=== PATIENT | male | born 1965 | race American Indian/Alaskan Native ===

== ENCOUNTER 2017-03-13 08:55 | Emergency (ER) | payer MEDICAID ==
[~2017-03-13] VITALS: Ht 172.7 cm; Wt 97.7 kg
[2017-03-13] MEDS ORDERED: KETOROLAC 30 MG/1 ML ONE (09:24)
[2017-03-13] MEDS ORDERED: KETOROLAC 30 MG/1 ML IM ONE (09:30)
[2017-03-13 10:30] VITALS: BP 125/55
== END 2017-03-13 10:33 | disposition home or self-care (01) ==
LOC: ED 10:20
DX: L03.114 Cellulitis of left upper limb (principal); M79.642 Pain in left hand; F17.210 Nicotine dependence, cigarettes, uncomplicated
CPT/HCPCS: 29125; 73130; 96372; 99284; J1885

== ENCOUNTER 2017-03-20 08:17 | Emergency (ER) | payer MEDICAID ==
[~2017-03-20] VITALS: Ht 172.7 cm; Wt 97.1 kg
[2017-03-20 08:18] VITALS: BP 130/70
== END 2017-03-20 09:34 | disposition home or self-care (01) ==
LOC: ED 09:19
DX: L03.114 Cellulitis of left upper limb (principal); F17.210 Nicotine dependence, cigarettes, uncomplicated
CPT/HCPCS: 99283

== ENCOUNTER 2021-01-06 11:19 | Emergency (ER) | payer MEDICAID ==
[~2021-01-06] VITALS: Ht 172.7 cm; Wt 94.8 kg
--- NOTE | 2021-01-06 12:16 | NUR ---
TO BLAIR FROM [facility]
--- NOTE | 2021-01-06 13:41 | NUR ---
UA sample obtained and sent. 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 [place] tech arrived and in process of exam now.
[2021-01-06 13:43] LABS: BASOPHILS % (AUTO) 1 % (0-1); EOSINOPHILS % (AUTO) 2 % (1-7); LYMPHOCYTES % (AUTO) 23 % (22-44); MEAN CORPUSCULAR HEMOGLOBIN 31.9 pg (27.5-34.5); MEAN CORPUSCULAR HGB CONC 34.6 g/dL (33.2-36.2); MEAN PLATELET VOLUME 7.5 fL (7.4-10.4); MONOCYTES % (AUTO) 11 % (2-9); NEUTROPHILS % (AUTO) 63 % (42-75); PLATELET COUNT 215 x10^3/uL (130-400); RED BLOOD COUNT 4.83 x10^6/uL (4.38-5.82)
[2021-01-06 13:48] LABS: MD NO
[2021-01-06 13:50] LABS: MICROSCOPIC NOT IND
[2021-01-06 13:57] LABS: ALBUMIN 3.8 g/dL (3.4-5.0); ANION GAP 5 mmol/L (5-15); CHLORIDE 111 mmol/L (98-107)
[2021-01-06 13:59] LABS: CREATININE 0.78 mg/dL (0.7-1.3)
[2021-01-06 15:04] VITALS: BP 130/78
== END 2021-01-06 15:24 | disposition home or self-care (01) ==
LOC: ED 15:14
DX: S39.011A Strain of muscle, fascia and tendon of abdomen, initial encounter (principal); R10.2 Pelvic and perineal pain; X58.XXXA Exposure to other specified factors, initial encounter; Y93.89 Activity, other specified; Y92.89 Other specified places as the place of occurrence of the external cause; Y99.8 Other external cause status
CPT/HCPCS: 36415; 76857; 80048; 81003; 82040; 85025; 99284